=== PATIENT | female | born 1950 | race Caucasian/White ===

== ENCOUNTER → 2023-06-10 06:31 | Day surgery (SDC) | payer MEDICARE, OTHER, SELFPAY | LOC: GI 06:31 | PROVIDERS: ATTENDING PHYSICIAN Specialist | DX: K20.90 Esophagitis, unspecified without bleeding (principal); K22.2 Esophageal obstruction; R49.0 Dysphonia | CPT/HCPCS: 43239; 88305 ==

== ENCOUNTER → 2023-06-10 12:24 | Outpatient (REF) | payer MEDICARE, OTHER, SELFPAY ==
[2023-06-10 13:27] LABS: % Basophils 0.9 % (0-2); % Eosinophils 1.2 % (0-6); % Immature Granulocytes 0.5 % (0-0.5); % Lymphocytes 26.7 % (20.5-51.1); % Neutrophils 63.7 % (42.2-75.2); Absolute Basophils 0.1 10^3/uL (0-0.2); Absolute Eosinophils 0.1 10^3/uL (0-0.7); Absolute Lymphocytes 1.5 10^3/uL (1.2-3.4); Absolute Monocytes 0.4 10^3/uL (0.1-0.6); Absolute Neutrophils 3.6 10^3/uL (1.4-6.5); Hematocrit 37.9 % (37.0-47.0); Mean Corp Hgb Conc. 36.9 g/dL (33.0-37.0); Mean Corpuscular Volume 86.5 fL (81.0-99.0); Mean Platelet Volume 12.2 fL (7.4-10.4); Nucleated Red Blood Cells % 0 %; Platelet Count 146 10^3/uL (130-400); Red Blood Cell Count 4.38 10^6/uL (4.20-5.40); Red Cell Dist. Width 12.3 % (11.5-14.5); White Blood Cell Count 5.7 10^3/uL (4.8-10.8)
[2023-06-10 13:50] LABS: ALT (SGPT) 19 U/L (0-35); AST (SGOT) 28 U/L (14-36); Albumin 3.8 g/dl (3.5-5.0); Alkaline Phosphatase 67 U/L (38-126); Blood Urea Nitrogen 16 mg/dl (7-17); Calcium 8.7 mg/dl (8.4-10.2); Carbon Dioxide 28 mmol/L (22-30); Chloride 106 mmol/L (98-107); Glucose 89 mg/dl (70-99); Potassium 4.2 mmol/L (3.5-5.1); Sodium 137 mmol/L (135-145); Total Bilirubin 1.7 mg/dl (0.2-1.3); Total Protein 6.4 g/dl (6.3-8.2); eGFR > 60.00
== END ==
LOC: REG 12:24
PROVIDERS: ATTENDING PHYSICIAN Physician Assistant
DX: K43.9 Ventral hernia without obstruction or gangrene (principal); R10.9 Unspecified abdominal pain
CPT/HCPCS: 36415; 80053; 85025; 87086

== ENCOUNTER → 2023-06-11 13:40 | Outpatient (REF) | payer MEDICARE, OTHER, SELFPAY | LOC: HWRAD 13:40 | PROVIDERS: ATTENDING PHYSICIAN Physician Assistant; FAMILY PHYSICIAN Family Medicine | DX: K43.9 Ventral hernia without obstruction or gangrene (principal); R10.9 Unspecified abdominal pain | CPT/HCPCS: 74177; Q9967 ==

== ENCOUNTER 2023-10-19 14:53 | Outpatient (RCR) | payer MEDICARE, OTHER, SELFPAY | END 2023-10-19 23:59 | disposition home or self-care (01) | LOC: RPT 14:53 | PROVIDERS: ATTENDING PHYSICIAN Family Medicine | DX: M54.50 Low back pain, unspecified (principal); R19.8 Other specified symptoms and signs involving the digestive system and abdomen; K43.9 Ventral hernia without obstruction or gangrene; Z73.6 Limitation of activities due to disability | CPT/HCPCS: 97110; 97140; 97161; 97530 ==

== ENCOUNTER 2023-10-25 09:51 | Outpatient (RCR) | payer MEDICARE, OTHER, SELFPAY | END 2023-10-25 23:59 | disposition home or self-care (01) | LOC: RPT 09:51 | PROVIDERS: ATTENDING PHYSICIAN Family Medicine | DX: M54.50 Low back pain, unspecified (principal); R19.8 Other specified symptoms and signs involving the digestive system and abdomen; K43.9 Ventral hernia without obstruction or gangrene; Z73.6 Limitation of activities due to disability | CPT/HCPCS: 97110 ==

== ENCOUNTER 2023-10-31 19:02 | Emergency (ER) | payer MEDICARE, OTHER, SELFPAY ==
[2023-10-31 19:05] VITALS: BP 179/88
[2023-10-31] MEDS: NORCO 5/325 1 TABLET PO (20:26)
[2023-10-31 22:29] LABS: % Basophils 0.7 % (0-2); % Eosinophils 1.9 % (0-6); % Immature Granulocytes 0.5 % (0-0.5); % Lymphocytes 23.7 % (20.5-51.1); % Monocytes 10.6 % (1.7-9.3); % Neutrophils 62.6 % (42.2-75.2); Absolute Eosinophils 0.1 10^3/uL (0-0.7); Absolute Lymphocytes 1.4 10^3/uL (1.2-3.4); Absolute Monocytes 0.6 10^3/uL (0.1-0.6); Absolute Neutrophils 3.6 10^3/uL (1.4-6.5); Hematocrit 37.6 % (37.0-47.0); Hemoglobin 13.2 g/dL (12.0-16.0); Mean Corp Hgb Conc. 35.1 g/dL (33.0-37.0); Mean Corpuscular Hgb 31.3 pg (27.0-31.0); Mean Corpuscular Volume 89.1 fL (81.0-99.0); Nucleated Red Blood Cells % 0 %; Platelet Count 150 10^3/uL (130-400); Red Blood Cell Count 4.22 10^6/uL (4.20-5.40); Red Cell Dist. Width 12.4 % (11.5-14.5); White Blood Cell Count 5.7 10^3/uL (4.8-10.8)
[2023-10-31 22:40] LABS: ALT (SGPT) 22 U/L (0-35); AST (SGOT) 28 U/L (14-36); Albumin 3.9 g/dl (3.5-5.0); Alkaline Phosphatase 67 U/L (38-126); Blood Urea Nitrogen 35 mg/dl (7-17); Calcium 9.4 mg/dl (8.4-10.2); Carbon Dioxide 28 mmol/L (22-30); Chloride 105 mmol/L (98-107); Glucose 107 mg/dl (70-99); Potassium 4.4 mmol/L (3.5-5.1); Sodium 139 mmol/L (135-145); Total Bilirubin 1.1 mg/dl (0.2-1.3); Total Protein 6.2 g/dl (6.3-8.2); eGFR > 60.00
--- NOTE | 2023-10-31 23:07 | ED.MUSCINJ ---
HPI-Injury
General
Chief Complaint: Fall
Source: patient
Exam Limitations: none
Time Seen by Provider: 10/31/23 20:11
Nursing documentation reviewed up to this point in time: agreed with
History of Present Illness-Injury
Is this injury a work related problem?: No
Is pt an associate of [facility]/[place]?: No
Initial Injury comments:
Patient to ED after trip and fall. Fell walking up cement patio steps. Denies hitting her head. Complains of carver to left wrist and sternum. Abrasions noted bilateral knees. Injury occurred just PURCHASING SUPERVISOR
Past History
Past History
ED Past Medical History: Asthma and Other (diverticulitis)
ED Past Surgical History: Bowel resection
Social History
Tobacco: Non-smoker
Alcohol: None
Drug: None
Personal:
Living: with family
Review of Systems
Review of Systems
Allergies reviewed?: Yes
All Other Systems: ROS reviewed and negative except as documented in HPI and ROS
Constitutional: Reports no symptoms
EENT: Reports no symptoms
Respiratory: Reports no symptoms
Cardiac: Reports no symptoms
ABD/GI: Reports no symptoms
: Reports no symptoms
Musculoskeletal: Reports joint pain (pain to left wrist, sternum)
Skin: Reports other (Abrasions bilateral anterior knees)
Neurological: Reports no symptoms
Psychiatric: Reports no symptoms
Musculoskeletal Injury Exam
Musculoskeletal Injury Exam
Left Wrist:
Pain with Movement?: Moderate
Tender to palpation?: Moderate
Soft tissue swelling?: Mild
External deformity and angulation?: None
Joint effusion?: None
Contusion?: Moderate
Hematoma-local bleeding into tissue?: Mild
Strain- Sprain- Tear (Connective tissue injury)?: Moderate
Crepitus with movement?: No
Joint instability?: No
Malalignment/deformity?: No
Range of motion: Limited
Distal skin color and temperature: normal-warm & good color
Capillary Refill: normal
Normal distal neurovascular exam?: Yes
Peripheral Pulses: radial (left): 3+
Sternum:
Pain with Movement?: Moderate
Tender to palpation?: Moderate
Soft tissue swelling?: None
External deformity and angulation?: None
Joint effusion?: None
Contusion?: Moderate
Hematoma-local bleeding into tissue?: None
Strain- Sprain- Tear (Connective tissue injury)?: Moderate
Crepitus with movement?: No
Joint instability?: No
Malalignment/deformity?: No
Range of motion: Limited
Distal skin color and temperature: normal-warm & good color
Capillary Refill: normal
Normal distal neurovascular exam?: Yes
Skin Exam
Abrasion
Bilateral Anterior Knee:
Description of abrasion: superfical/clean
Phy Exam
General Physical Exam
General Presentation: well appearing and mild distress
General age: appears stated age
General Skin: warm and dry
General Mental: alert
Cardiovascular Exam
Cardiovascular Exam: regular rate/rhythm
Pulmonary Exam
Pulmonary Exam: no respiratory distress
Gastrointestinal Exam
Gastrointestinal Exam: non tender and soft
Musculoskeletal Exam
Musculoskeletal Exam: neuro vasc intact
Skin Exam
Skin Exam: normal color, warm/dry and no rash
Psychiatric Exam
Psychiatric Exam: normal mood/affect
Injury Course
Orders/Labs/Results
Orders:
Orders
10/31/23 19:08
Wrist, Left 3 Views CR [CR Wrist - Left Min 3 Views] Urgent
Comment:
Reason For Exam: fall;pain and swelling
10/31/23 20:22
Sling Left-Treatment ONCE
Volar Left-Treatment ONCE
Hydrocodone 5/APAP 325 [Blossom 5/325] 1 tablet PO NOW STA
Sternum 2 Views CR [CR Sternum Min 2 Views] Urgent
Comment:
Reason For Exam: pain, fall
10/31/23 21:[address] [CT Chest With Iv Contrast] Urgent
Comment:
Reason For Exam: fall, sternal fx
10/31/23 22:21
Complete Blood Count/With Diff Urgent
Comprehensive Metabolic Panel Urgent
10/31/23 23:49
Hydrocodone 5/APAP 325 [Blossom 5/325] 1 tablet PO NOW STA
Abnormal Lab Results
10/31/23
22:21
MCH 31.3 H pg
(27.0-31.0)
MPV 11.0 H fL
(7.4-10.4)
Monocytes % 10.6 H %
(1.7-9.3)
BUN 35 H mg/dl
(7-17)
Glucose 107 H mg/dl
(70-99)
Total Protein 6.2 L g/dl
(6.3-8.2)
10/31/23 22:21
10/31/23 22:21
*Radiology
Radiology exam reviewed: radiology read reviewed
*Pulse Oximetry
Patient hypoxic: no
*Critical Care Note
Total Time (30-74mins, 75-104mins- exclusive of procedures): Not Applicable
ED Attending Note
-
Portions of this chart may have been created with voice recognition software.� Occasional wrong word or��sound alike� substitutions may have occurred due to the inherent limitations of voice recognition software.
Discharge Plan
Departure
Patient Disposition: Home (Routine Discharge)
Date of Disposition: 10/31/23
Time of Disposition: 23:49
Patient with high blood pressure during this ER visit?: No
Condition: Good
Covid-19: Not Applicable
Discharge Problem:
Fracture of wrist, Fracture of sternum
Instructions: Sternal Fracture (DC), How to Use a Shoulder Sling ED, Splint Care ED, Wrist fracture
Prescriptions:
New
hydrocodone-acetaminophen 5-325 mg tablet
1 tab PO Q4H PRN (Reason: Pain) Qty: 14 0RF
No Action
taurine 500 MG capsule
500 mg PO DAILY
Centrum Silver 0.4 mg-300 mcg- 250 mcg Tablet
1 tab PO DAILY
magnesium gluconate 27 mg magnesium (500 mg) Tablet
54 mg PO DAILY
Spiriva Respimat 2.5 mcg/actuation Mist
2 puff inhalation R DAILY Qty: 4 0RF
levalbuterol tartrate [Xopenex HFA] 45 mcg/actuation HFA aerosol inhaler
2 inh inhalation Q6H PRN (Reason: shortness of breath or wheezing) Qty: 15 0RF
Referrals:
Elsy Ace MD [Family Provider] -
Suleiman Willett MD [Active] - Call in 1-3 days for appt
Interventions
Interventions:
*Risk Screen - Suicide Last Done: 10/31/23 19:05
*General Assessment Last Done: 10/31/23 19:05
*Neglect/Abuse Screening Last Done: 10/31/23 19:05
ED- Fall Risk Assessment Last Done: 10/31/23 19:54
*ED COVID-19 Vaccine History Last Done: 10/31/23 19:05
*Nursing Disposition Last Done: 11/01/23 00:18
ED-Musculoskeletal Assessment Last Done: 10/31/23 20:00
ED- Neurological Assessment Last Done: 10/31/23 19:59
ED-Skin Assessment Last Done: 10/31/23 20:00
Discharge Date and Time
Discharge Date/Time: 11/01/23 00:19
Print Language: KYRGYZ
[2023-10-31 23:12] VITALS: BP 155/72
[2023-10-31 23:13] VITALS: BMI 30.3
[2023-11-01] MEDS: NORCO 5/325 1 TABLET PO (00:07)
== END 2023-11-01 00:19 | disposition home or self-care (01) ==
LOC: EMR 19:02
PROVIDERS: Nurse Practitioner; EMERGENCY PHYSICIAN Emergency Medicine; FAMILY PHYSICIAN Family Medicine
DX: S52.325A Nondisplaced transverse fracture of shaft of left radius, initial encounter for closed fracture (principal); S22.20XA Unspecified fracture of sternum, initial encounter for closed fracture; S80.212A Abrasion, left knee, initial encounter; S80.211A Abrasion, right knee, initial encounter; W10.9XXA Fall (on) (from) unspecified stairs and steps, initial encounter
CPT/HCPCS: 99284; 29125; 71120; 71260; 73110; 80053; 85025; Q9967

== ENCOUNTER → 2023-11-16 10:27 | Outpatient (REF) | payer MEDICARE, OTHER, SELFPAY | LOC: RAD 10:27 | PROVIDERS: ATTENDING PHYSICIAN Family Medicine; FAMILY PHYSICIAN Family Medicine | DX: R09.1 Pleurisy (principal); S22.22XA Fracture of body of sternum, initial encounter for closed fracture | CPT/HCPCS: 73010 ==

== ENCOUNTER → 2024-02-18 13:16 | Outpatient (REF) | payer MEDICARE, OTHER, SELFPAY | LOC: HWRAD 13:16 | PROVIDERS: ATTENDING PHYSICIAN Student in an Organized Health Care Education/Training Program; FAMILY PHYSICIAN Family Medicine | DX: M25.50 Pain in unspecified joint (principal); M54.50 Low back pain, unspecified; R76.8 Other specified abnormal immunological findings in serum | CPT/HCPCS: 72114 ==

== ENCOUNTER → 2024-03-15 13:52 | Outpatient (REF) | payer MEDICARE, OTHER, SELFPAY | LOC: HWRAD 13:52 | PROVIDERS: ATTENDING PHYSICIAN Student in an Organized Health Care Education/Training Program; FAMILY PHYSICIAN Family Medicine | DX: M85.89 Other specified disorders of bone density and structure, multiple sites (principal); Z13.820 Encounter for screening for osteoporosis | CPT/HCPCS: 77080 ==

== ENCOUNTER → 2024-03-31 11:54 | Outpatient (REF) | payer MEDICARE, OTHER, SELFPAY ==
[2024-03-31 13:05] LABS: % Eosinophils 2.4 % (0-6); % Immature Granulocytes 0.2 % (0-0.5); % Lymphocytes 28.9 % (20.5-51.1); % Neutrophils 58.5 % (42.2-75.2); Absolute Basophils 0.1 10^3/uL (0-0.2); Absolute Eosinophils 0.1 10^3/uL (0-0.7); Absolute Lymphocytes 1.5 10^3/uL (1.2-3.4); Absolute Monocytes 0.5 10^3/uL (0.1-0.6); Absolute Neutrophils 2.9 10^3/uL (1.4-6.5); Hematocrit 42.8 % (37.0-47.0); Hemoglobin 14.2 g/dL (12.0-16.0); Mean Corp Hgb Conc. 33.2 g/dL (33.0-37.0); Mean Corpuscular Hgb 30.8 pg (27.0-31.0); Mean Corpuscular Volume 92.8 fL (81.0-99.0); Mean Platelet Volume 12.3 fL (7.4-10.4); Nucleated Red Blood Cells % 0 %; Platelet Count 164 10^3/uL (130-400); Red Blood Cell Count 4.61 10^6/uL (4.20-5.40); Red Cell Dist. Width 12.3 % (11.5-14.5)
== END ==
LOC: REG 11:54
PROVIDERS: ATTENDING PHYSICIAN Physician Assistant; FAMILY PHYSICIAN Family Medicine
DX: R19.5 Other fecal abnormalities (principal)
CPT/HCPCS: 36415; 85025

== ENCOUNTER 2024-05-08 08:14 | Inpatient (IN) | payer MEDICARE, OTHER, SELFPAY ==
[2024-05-06 09:59] VITALS: BP 168/94
--- NOTE | 2024-05-06 12:03 | ED.GENMED ---
History of Present Illness
General
Chief Complaint: Back Pain
Source: patient and spouse
Exam Limitations: none
Time Seen by Provider: 05/06/24 11:17
History of Present Illness
History of Present Illness:
Patient with lumbar injections done 2 days ago. This is for chronic back issues. However yesterday she developed fevers chills shaking chills. Increasing pain now more sciatica-like rating to the buttock and right leg. No other symptoms, denying
urinary symptoms abdominal pain respiratory symptoms sore throat etc. Pain is severe in nature. Positional in nature.
Past History
Past History
ED Past Medical History: Asthma, Other (diverticulitis) and Other (Chronic back pain)
ED Past Surgical History: Bowel resection
Social History
Tobacco: Non-smoker
Alcohol: None
Drug: None
Personal:
Living: with family
Review of Systems
Review of Systems
All Other Systems: Not applicable
Constitutional: Reports fever and chills
Respiratory: Reports no symptoms
Cardiac: Reports no symptoms
ABD/GI: Reports no symptoms
Phy Exam
Physical Exam
Physical Exam:
GENERAL: Alert and oriented in no apparent distress
EYE: Orbits normal.
CARDIAC: Regular rate and rhythm without any obvious murmurs.
LUNGS: Clear breath sounds,normal
ABDOMEN: Soft, without focal tenderness or distention
NEUROLOGICAL: Alert and oriented , grossly non-focal
SKIN: Warm and dry, no rash or lesion, no discoloration, skin intact.
MUSCULOSKELETAL: No edema,no deformity.Good color. No pain with hip rotation. No leg swelling. Good distal pulses and color. Good lower extremity strength. Plantar dorsiflexion intact. Some mild low back pain with right straight leg raising.
The spinal area appears normal. No erythema no drainage. No point tenderness. Location of pain is inferior and lateral to the lower lumbar spine.
PSYCH: Normal and appropriate interaction.
Course
Orders/Labs/Results
Orders:
Orders
05/06/24 11:21
IV Insert/Care/Rem.- Treatment PRN
05/06/24 11:34
Acetaminophen 1000MG/100Ml [Ofirmev] 1,000 mg in 100 ml IV ONCE
Acetaminophen IV Indication:: Targeted Temp Management
05/06/24 11:35
Ketorolac [Toradol] 15 mg IV NOW STA
05/06/24 11:38
MR Lumbar W/o & With Contrast Urgent
Reason For Exam: Fever/lumbar injection/pain
OK for patient to be off Cardiac Monitoring for MRI: Yes
Recent pill cam endoscopy?: No
05/06/24 12:41
Basic Metabolic Panel Urgent
COVID-19 Antigen Urgent
Source: Nasal Swab
CRP [C-Reactive Protein] Urgent
Complete Blood Count/With Diff Urgent
ESR [Erythrocyte Sed Rate] Urgent
Blood Culture Q30M
GISSEL Source: Blood/Venous
Specimen Description:
Influenza A+B Rapid Molecular Urgent
GISSEL Source: Nasal Swab
Specimen Description:
05/06/24 13:47
Urinalysis Reflex To Culture Urgent
Date Specimen was Collected: 05/06/24
Time Specimen was Collected: 11:34
Urine Microscopic Reflex Cult Urgent
Blood Culture Q30M
GISSEL Source: Blood/Venous
Specimen Description:
Urine Culture Urgent
GISSEL Source: U
Specimen Description:
Date Specimen was Collected: 05/06/24
Time Specimen was Collected: 11:34
05/06/24 Dinner
Regular
At Your Request: Full Participation
05/06/24 16:02
CefTRIAXone [Rocephin] 1,000 mg IV NOW STA
HYDROmorphone [Dilaudid] 0.25 mg IV NOW STA
05/06/24 16:12
Sterile Water [Sterile Water For Injection] 20 ml .ROUTE .STK-MED
05/06/24 17:04
Cyclobenzaprine HCl [Flexeril] 5 mg PO NOW STA
HYDROmorphone [Dilaudid] 1 mg IV Q4HPRN PRN
Ketorolac [Toradol] 15 mg IV Q6HPRN PRN
05/06/24 17:05
Admit/Transfer Patient As Directed
Co-Sign Provider:
Level of Care: Observation services
Assign to:: Medical/Surgical
Physician / Group: maurice askew
Diagnosis: acute R sided sciatica/w radiculopathy,sympt UTI
Reason for Hospitalization: acute R sided sciatica/w radiculopathy,sympt UTI
Expected length of stay greater than two midnights?: No
05/06/24 17:06
Code Status As Directed
Resuscitation Status: Full Code
05/06/24 17:09
PRN Pain Medication Management As Directed
May give lesser potent ordered pain med per pt: Yes
preference::
Protocol:: Medication orders for pain may be administered in a
manner that supports deferring to patient preference
when the pt is:
- Requesting an ordered lesser potent pain medication.
Least to most potent pain medications are defined
as: acetaminophen < NSAID < tramadol < opioids
(morphine, oxycodone, hydromorphone).
- Requesting a lesser dose of the same medication IF
ORDERED.
- Requesting a less intrusive route of administration
if both routes are prescribed by the provider (PO <
IV).
05/06/24 22:00
Cyclobenzaprine HCl [Flexeril] 5 mg PO TID
Abnormal Lab Results
05/06/24 05/06/24
12:41 13:47
RBC 4.13 L 10^6/uL
(4.20-5.40)
MCH 31.5 H pg
(27.0-31.0)
Plt Count 110 L 10^3/uL
(130-400)
MPV 11.4 H fL
(7.4-10.4)
Absolute Lymphs (auto) 0.4 L 10^3/uL
(1.2-3.4)
Neutrophils % 83.8 H %
(42.2-75.2)
Lymphocytes % 6.9 L %
(20.5-51.1)
ESR 26 H mm/hour
(0-20)
Sodium 134 L mmol/L
(135-145)
BUN 22 H mg/dl
(7-17)
Glucose 111 H mg/dl
(70-99)
C-Reactive Protein 71.90 H mg/L
(0.0-10.00)
Urine Ketones Trace A
(Negative)
Urine Nitrite (Reflex) Positive A
(Negative)
Leukocyte Esterase Rfl 1+ A
(Negative)
Urine WBC (Reflex) 30-40 A /HPF
(0-5)
Urine Bacteria (Reflex) Many A
(Negative)
05/06/24 12:41
05/06/24 12:41
Vital Signs
Initial and Last Documented VS:
Initial Vital Signs
Temp Pulse Resp BP Pulse Ox
100.1 F 81 16 168/94 98
05/06/24 09:59 05/06/24 09:59 05/06/24 09:59 05/06/24 09:59 05/06/24 09:59
Last Documented Vital Signs
Temp Pulse Resp BP Pulse Ox
98.9 F 70 16 130/60 97
05/06/24 16:49 05/06/24 16:49 05/06/24 09:59 05/06/24 16:49 05/06/24 16:49
MDM/Problems Addressed
Differential Diagnosis Includes:
With infectious symptoms, increasing pain and recent injection epidural abscess osteomyelitis or discitis have to be considered. MRI ordered. Other etiology of fever to be considered including urine or viral although unlikely. Workup in progress.
Pain management.
*Pulse Oximetry
Patient hypoxic: no
*Critical Care Note
Total Time (30-74mins, 75-104mins- exclusive of procedures): Not Applicable
Data Reviewed
Review of Other/Old Records Reveals: Labs, Records, Radiology Studies and Testing
Update Note
Update Note:
Stable MRI. No signs of osteomyelitis discitis or epidural collection. Urine positive. Possibly 2 independent issues causing her issues. Will be admitted for intractable back pain UTI with some systemic symptoms
ED Attending Note
-
Portions of this chart may have been created with voice recognition software.� Occasional wrong word or��sound alike� substitutions may have occurred due to the inherent limitations of voice recognition software.
Discharge Plan
Departure
Patient Disposition: Admit
Date of Disposition: 05/06/24
Time of Disposition: 16:03
Presentation/result/management discussed w/ accepting MD/DO: Hospitalist
Discharge Problem:
Intractable back pain/sciatica, Recent lumbar injections, Fever/UTI
Prescriptions:
No Action
taurine 500 MG capsule
500 mg PO DAILY
Centrum Silver 0.4 mg-300 mcg- 250 mcg Tablet
1 tab PO DAILY
magnesium gluconate 27 mg magnesium (500 mg) Tablet
54 mg PO DAILY
B12
1,000 mcg PO DAILY
cholecalciferol (vitamin D3) [Vitamin D3] 25 mcg (1,000 unit) Tablet
naproxen sodium [Aleve] 220 mg Capsule
220 mg PO PRN PRN (Reason: pain)
Referrals:
Elsy Ace MD [Family Provider] -
Interventions
Interventions:
*Risk Screen - Suicide Last Done: 05/06/24 09:59
*General Assessment Last Done: 05/06/24 11:10
*Neglect/Abuse Screening Last Done: 05/06/24 09:59
*ED COVID-19 Vaccine History Last Done: 05/06/24 11:10
ED-Musculoskeletal Assessment Last Done: 05/06/24 11:10
Discharge Date and Time
Print Language: AMERICAN
[2024-05-06] MEDS: OFIRMEV 100 IV (12:42)
[2024-05-06] MEDS: TORADOL 15 MG IV ×2 (12:43→21:13)
[2024-05-06 13:16] LABS: % Basophils 0.5 % (0-2); % Eosinophils 0.2 % (0-6); % Immature Granulocytes 0.2 % (0-0.5); % Lymphocytes 6.9 % (20.5-51.1); % Monocytes 8.4 % (1.7-9.3); % Neutrophils 83.8 % (42.2-75.2); Absolute Lymphocytes 0.4 10^3/uL (1.2-3.4); Absolute Monocytes 0.5 10^3/uL (0.1-0.6); Hematocrit 37.8 % (37.0-47.0); Mean Corp Hgb Conc. 34.4 g/dL (33.0-37.0); Mean Corpuscular Hgb 31.5 pg (27.0-31.0); Mean Corpuscular Volume 91.5 fL (81.0-99.0); Mean Platelet Volume 11.4 fL (7.4-10.4); Nucleated Red Blood Cells % 0 %; Platelet Count 110 10^3/uL (130-400); Red Blood Cell Count 4.13 10^6/uL (4.20-5.40); Red Cell Dist. Width 12.5 % (11.5-14.5); White Blood Cell Count 5.9 10^3/uL (4.8-10.8)
[2024-05-06 13:23] LABS: Blood Urea Nitrogen 22 mg/dl (7-17); Carbon Dioxide 25 mmol/L (22-30); Chloride 100 mmol/L (98-107); Glucose 111 mg/dl (70-99); Potassium 3.9 mmol/L (3.5-5.1); Sodium 134 mmol/L (135-145); eGFR > 60.00
[2024-05-06 13:36] LABS: COVID-19 Antigen Negative (Negative)
[2024-05-06 14:01] LABS: Urine Albumin Negative (Neg - Trace); Urine Bilirubin Negative (Negative); Urine Character Clear (Clear); Urine Color Yellow; Urine Glucose Negative (Negative); Urine Ketone Trace (Negative); Urine Leukocyte 1+ (Negative); Urine Nitrite Positive (Negative); Urine Occult Blood Negative (Negative); Urine Urobilinogen Negative (Neg - 1+)
[2024-05-06 14:10] LABS: Urine Bacteria Many (Negative); Urine Red Blood Cell 0-2 /HPF (0-2); Urine White Cell 30-40 /HPF (0-5)
[2024-05-06 14:23] LABS: Erythrocyte Sed Rate 26 mm/hour (0-20)
[2024-05-06] MEDS: DILAUDID 0.25 MG IV (16:18)
[2024-05-06] MEDS: ROCEPHIN 1000 MG IV (16:18)
--- NOTE | 2024-05-06 16:29 | HPS.HSE ---
Family Physician
-
Family Physician: Elsy Ace
Chief Complaint
-
Urgency, frequency, difficulty urinating, right leg pain, fever shaking chills and headache
History of Present Illness
24-year-old female complaining of right buttocks to right leg pain today positional in nature. She also developed a fever 100.1 F with shaking chills and headache. She is status post lumbar epidural 2 days ago. She reports if the epidural helps
with her pain she will then have a rhizotomy procedure. She also complains of difficulty urinating for the past month then urgency and frequency over the past few days
She had MRIs in the ER were negative for any abscess, osteomyelitis, discitis or epidural collection. She was noted to have UTI on urinalysis. She denies sore throat, chest pain, palpitations, cough, shortness of breath, abdominal pain, nausea,
vomiting, diarrhea, rash, sick contacts.
She has past medical history of anxiety emphysema using Spiriva and Xopenex to decrease her anxiety, chronic back pain DJD thoracic/lumbar history epidural injections, diverticulitis, bowel resection.
Medical History
Past Medical History
Past Medical History: Reports Other
Additional Past Medical History:
Anxiety
Emphysema using Spiriva and Xopenex to decrease her anxiety
chronic back pain DJD thoracic/lumbar history epidural injections
Diverticulitis-bowel resection
Vocal cord polyps
Past Surgical History: Reports Other
Additional Past Surgical History:
Vocal cord polyps removed
Bilateral hip replacement
bilateral knee replacement
Bilateral thumb reconstruction
Hernia surgery
Colon resection�diverticulitis
'Rotator cuff
Social History
Tobacco: Non-smoker
Alcohol: None
Drug: None
Personal:
Living: With Family
Family History
Family History: Not pertinent
Allergies / Home Medications
Allergies reflects when Allergies were last updated in [facility].
Home Medications with original date entered in [facility]
Allergy/Medication List:
Allergies
Allergy/AdvReac Type Severity Reaction Status Date / Time
No Known Allergies Allergy Verified 05/06/24 09:59
Home Medications
taurine 500 mg capsule 500 mg PO DAILY Supplement 01/12/16
magnesium gluconate 27 mg magnesium (500 mg) tablet 54 mg PO DAILY 01/08/23
mmlbylma-prh-zwwyj acid 0.4 mg-lycopene 300 mcg-lutein 250 mcg tablet (Centrum Silver) 1 tab PO DAILY 01/08/23
B12 1,000 mcg PO DAILY 05/06/24
cholecalciferol (vitamin D3) 25 mcg (1,000 unit) tablet (Vitamin D3) 05/06/24
naproxen sodium 220 mg capsule (Aleve) 220 mg PO PRN PRN pain 05/06/24
Review of Systems
-
History Source: Patient and Family ()
A 12 point ROS was completed and negative except as noted: Yes
Constitutional: Reports Fever; Denies Chills
EENT: Denies Sore Throat or Runny Nose
Respiratory: Denies Cough or Trouble Breathing
Cardiac: Denies Chest Pain, Diaphoresis, Palpitations or Syncope
Abdomen/GI: Denies Abdominal Pain, Nausea, Vomiting, Diarrhea, Constipated, Bloody Stools or Black Stools
: Reports Dysuria, Frequency, Difficulty Voiding and Urgency; Denies Flank Pain, Incontinence or Dark Urine
Musculoskeletal: Reports Other (Point tenderness right side over sciatic area with radiculopathy down right leg); Denies Joint Pain or Edema
Skin: Denies Itching or Rash
Neurological: Denies Dizzy, Headache or Weakness
Endocrine: Reports No Symptoms
Hematologic/Lymphatic: Reports No Symptoms
Psych: Reports Anxiety (Due to pain)
Physical Exam
Vital Signs
Vital Signs
Temp Pulse Resp BP Pulse Ox
100.1 F 81 16 168/94 98
05/06/24 09:59 05/06/24 09:59 05/06/24 09:59 05/06/24 09:59 05/06/24 09:59
Physical Exam
General: Conversant and Pain; No Fever
HEENT: NormoCephalic, Anicteric, Moist mucous membranes, PERRLA, [place] Conjunctivae and No Ptosis
Respiratory: Clear; No Wheezes, Rales or Rhonchi
Cardiac: S1/S2 and Regular Rhythm; No Murmur, Rub, Gallop or Peripheral Edema
Breast: Deferred by me
GI: Soft, Non Tender, Non Distended, Normal Bowel Sounds and No Hepatosplenomegaly
Rectal: Deferred by Provider
Genito-urinary: Deferred by me
Musculoskeletal: No Clubbing, No Cyanosis and No Edema
Skin: Warm and Dry; No Rash or Jaundice
Neuro: AO x 3, No Motor Deficits, Nonfocal/grossly intact, Cranial Nerves Intact, No Sensory Deficits and Other (Point tenderness right side over sciatic area with radiculopathy down right leg); No Slurred Speech, Facial Droop, Tremors or Sedated
Psych: Anxious
Laboratory Results
-
05/06/24 12:41
05/06/24 12:41
Data Reviewed
-
Lab Data: Labs Reviewed by me
Impression/Plan
-
Impression/plan:
Admit to MedSurg
#Intractable back pain secondary to symptomatic UTI
Urgency, frequency, difficulty urinating
-Follow urine culture, blood cultures x 2 sent in ER
-100.1 F temp
-IV NSS 100 cc/h
-Tylenol as needed
-Follow CBC, CMP
#Acute right sided sciatica with radiculopathy exacerbated by recent epidural injection
#Chronic back pain due to DJD thoracic lumbar
-Patient's status post epidural injection 05/04/2024
-MRI of back today no abscess, osteomyelitis, discitis or epidural collection
-Flexeril 3 times daily, IV Toradol
#Chronic COPD�no acute exacerbation
-Continue Xopenex and Spiriva
Patient cannot tolerate albuterol nebs due to anxiety
#Anxiety Hx
#Diverticulitis hx
#Bowel resection hx
DVT prophylaxis
SCDs
Full code
[2024-05-06 16:49] VITALS: BP 130/60
--- NOTE | 2024-05-06 16:58 | W.PN.UPDATE ---
Update Note
Progress Note Update
This is an addendum to the H&P written by Lurdes Steiner on 05/06/2024. Patient seen and examined independently with [employer]ILY [employer].
74-year-old female past medical history of chronic back pain, asthma, presenting with fevers and chills starting yesterday. She had lumbar injections 2 days ago. She is having sciatica like pain radiating down the butt and down the right leg.
Patient with an pressure of 100.1. Labs show elevated CRP.
MRI lumbar spine shows multilevel degenerative changes of the lumbar spine without evidence of discitis/osteomyelitis or epidural collection. Urinalysis shows clear urine, 30-40 WBC, positive nitrates, +1 leukocyte esterase. COVID and influenza
are negative.
Presentation was initially concerning for discitis/osteomyelitis or epidural collection which is ruled out on MRI. Patient likely has lumbar radiculopathy exacerbated by steroid injection. Patient also with UTI. Check urine culture, blood
cultures. Ceftriaxone.
[2024-05-06] MEDS: FLEXERIL 5 MG PO ×2 (17:53→21:12)
[2024-05-06 19:25] VITALS: BP 139/72; BMI 29.5
--- NOTE | 2024-05-06 19:25 | PTCARENOTE ---
Pt arrived to at 1925 via wheelchair. Pt was assit x2 to bed. VSS and AAOX3. oriented to room and call bragg. bed in lowest position and locked. assessment ongoing.
[2024-05-06 23:27] VITALS: BP 135/58
[2024-05-07] MEDS: DILAUDID 1 MG IV (00:12)
[2024-05-07] MEDS: TYLENOL 650 MG PO ×3 (01:19→21:07)
[2024-05-07 06:07] LABS: % Basophils 0.4 % (0-2); % Eosinophils 0.2 % (0-6); % Immature Granulocytes 0.2 % (0-0.5); % Lymphocytes 10.5 % (20.5-51.1); % Monocytes 10.5 % (1.7-9.3); % Neutrophils 78.2 % (42.2-75.2); Absolute Lymphocytes 0.5 10^3/uL (1.2-3.4); Absolute Monocytes 0.5 10^3/uL (0.1-0.6); Absolute Neutrophils 3.5 10^3/uL (1.4-6.5); Hematocrit 35.7 % (37.0-47.0); Hemoglobin 12.1 g/dL (12.0-16.0); Mean Corp Hgb Conc. 33.9 g/dL (33.0-37.0); Mean Corpuscular Hgb 31.3 pg (27.0-31.0); Mean Corpuscular Volume 92.2 fL (81.0-99.0); Mean Platelet Volume 11.8 fL (7.4-10.4); Nucleated Red Blood Cells % 0 %; Platelet Count 101 10^3/uL (130-400); Red Blood Cell Count 3.87 10^6/uL (4.20-5.40); Red Cell Dist. Width 12.6 % (11.5-14.5); White Blood Cell Count 4.5 10^3/uL (4.8-10.8)
[2024-05-07 06:22] LABS: ALT (SGPT) 29 U/L (0-35); AST (SGOT) 41 U/L (14-36); Albumin 3.2 g/dl (3.5-5.0); Alkaline Phosphatase 66 U/L (38-126); Blood Urea Nitrogen 21 mg/dl (7-17); Calcium 8.3 mg/dl (8.4-10.2); Carbon Dioxide 26 mmol/L (22-30); Chloride 102 mmol/L (98-107); Estimated Creatinine Clearance 86 ml/min; Glucose 111 mg/dl (70-99); Potassium 3.8 mmol/L (3.5-5.1); Sodium 135 mmol/L (135-145); Total Bilirubin 1.5 mg/dl (0.2-1.3); Total Protein 5.6 g/dl (6.3-8.2); eGFR > 60.00
[2024-05-07 07:05] VITALS: BP 119/62
[2024-05-07 07:05] LABS: Hepatitis C Antibody Negative (Negative)
[2024-05-07] MEDS: VITAMIN B-12 1000 MCG PO (09:10)
[2024-05-07] MEDS: FLEXERIL 5 MG PO ×3 (09:10→21:03)
[2024-05-07] MEDS: THERAGRAN 1 TABLET PO (09:10)
--- NOTE | 2024-05-07 10:11 | PTCARENOTE ---
Patient feels much better with minimal amount of pain in lower back extending to right hip. Patient's gown and bed linens were wet with sweat. Patient states, 'My fever broke last night and I woke up soaked.' Patient OOb to BR with assist, some
weakness in RLE noted. Patient tolerated regular diet and is now sitting in chair. Spouse at bedside.
[2024-05-07 11:39] VITALS: BP 145/65; PULSE 105; O2SAT 99
[2024-05-07 11:40] VITALS: BP 145/65; PULSE 61
--- NOTE | 2024-05-07 13:53 | W.PN.HOSP.TC ---
Today's Communication/Plan
-
Continue with IV ceftriaxone
Follow cultures
Continue analgesia
PT/OT
Start Lovenox for DVT prophylaxis
Assessment / Plan
Assessment / Plan
#Sepsis secondary to symptomatic UTI
-Presented with urinary frequency/weak stream, fever; urine culture positive for E. coli
-No history of MDRO, was started on IV ceftriaxone after cultures taken
-Has remained hemodynamically stable without vasopressor requirement
-Blood cultures were also taken in the ED prior to antibiotics
-Viral testing was all negative; fever this morning of 101.1 �F
-Will continue with IV ceftriaxone empirically, follow CBC and temperature curve
-Continue to follow urine and blood cultures for sensitivities
-Narrow antibiotics accordingly
#Intractable back pain
#Lumbosacral radiculitis
#Right sided sciatica
-Chronic issue with acute on chronic worsening, s/p recent FABIOLA
-MRI here without signs of abscess, osteodiscitis, other infectious findings
-Pain improved on muscle relaxer and opiate analgesia
-Currently with likely systemic infection, will defer against steroid
-Continue with Flexeril and IV Toradol/IV Dilaudid
-PT/OT, encourage OOB as tolerated
-Start DVT prophylaxis with Lovenox, high risk with back injury
#Thrombocytopenia
#Leukopenia
-Suspect both processes reactive to UTI with possible bacteremia
-Platelet trend fairly stable, 110�101 on subsequent lab draws
-Continue to monitor CBC, monitor for bleeding
#COPD
-History of emphysema predominant COPD
-Home medications do not include any inhalers
-Does not require any baseline oxygen
-No signs of exacerbation
#DJD of thoracolumbar spine
#H/O recurrent diverticulitis s/p bowel resection
DVT prophylaxis: Start Lovenox
Diet: Regular
CODE STATUS: Full code
Anticipated Discharge: 24 - 48 hours
Subjective/Interval History
-
Date of Service: May 07, 2024
Seen and examined at the bedside. No acute events reported overnight. AFVSS this morning but did have fever overnight
States that she was alternating between chills and sweating overnight.
Denies any new complaints today. Back pain improved but still present, worse with movement
Objective Data
-
Labs:
Laboratory Results
05/07/24
04:17
WBC 4.5 L
Hgb 12.1
Hct 35.7 L
Plt Count 101 L
Sodium 135
Potassium 3.8
Chloride 102
Carbon Dioxide 26
BUN 21 H
Creatinine 0.7
Glucose 111 H
Calcium 8.3 L
Total Bilirubin 1.5 H
AST 41 H
ALT 29
Alkaline Phosphatase 66
Vital Signs:
Vital Signs
Temp Pulse Resp BP Pulse Ox
98.4 F 61 16 119/62 93
05/07/24 07:05 05/07/24 07:05 05/07/24 07:05 05/07/24 07:05 05/07/24 07:05
I&O
05/06/24 05/07/24 05/08/24
06:59 06:59 06:59
Intake Total 960 / 960
Balance 960 / 960
Review of Systems
-
History Source: Patient
All other systems: Reviewed and negative
Physical Exam
-
General: Well Developed, Well Nourished, No Apparent Distress and Other (Toxic appearance)
HEENT: Normocephalic, Atraumatic and Moist Mucous Membranes
Respiratory: Clear to Auscultation and Non Labored Respirations
Cardiac: Regular Rhythm and S1/S2; Negative Murmur, Rub or Gallop
GI: Soft, Nontender, Nondistended and Normal Bowel Sounds
Musculoskeletal: No Clubbing, No Cyanosis and No Edema
Skin: Warm and Dry; Negative Rash
Neuro: AO x 3 and Other (Limited by sciatic pain, no obvious FND but likely some RLE weakness)
Psych: Calm
Data Reviewed
-
Labs: Labs Reviewed by me and Discussed with Patient
[2024-05-07] MEDS: TORADOL 15 MG IV (14:02)
[2024-05-07 15:00] VITALS: BP 128/60
[2024-05-07] MEDS: LOVENOX 40 MG SC (17:16)
[2024-05-07] MEDS: ROCEPHIN 1000 MG IV (17:17)
[2024-05-07] MEDS: STERILE WATER FOR INJECTION 10 ML IV (17:18)
[2024-05-07] MEDS: SENOKOT-S 1 TABLET PO (17:54)
[2024-05-07] MEDS: MIRALAX 17 GRAMS PO (17:54)
--- NOTE | 2024-05-07 17:58 | PTCARENOTE ---
Patient c/o constipation. Miralax and Senokot given.
[2024-05-07 23:05] VITALS: BP 134/67
[2024-05-08 07:11] VITALS: BP 148/70
[2024-05-08] MEDS: FLEXERIL 5 MG PO ×2 (08:52→16:29)
[2024-05-08] MEDS: VITAMIN B-12 1000 MCG PO (08:52)
[2024-05-08] MEDS: THERAGRAN 1 TABLET PO (08:52)
[2024-05-08] MEDS: TORADOL 15 MG IV (08:59)
[2024-05-08] MEDS: SENOKOT-S 1 TABLET PO (08:59)
[2024-05-08 09:59] LABS: Hematocrit 37.2 % (37.0-47.0); Hemoglobin 12.4 g/dL (12.0-16.0); Mean Corp Hgb Conc. 33.7 g/dL (33.0-37.0); Mean Corpuscular Hgb 31.2 pg (27.0-31.0); Mean Corpuscular Volume 92.7 fL (81.0-99.0); Mean Platelet Volume 11.8 fL (7.4-10.4); Platelet Count 103 10^3/uL (130-400); Red Blood Cell Count 3.97 10^6/uL (4.20-5.40); Red Cell Dist. Width 12.5 % (11.5-14.5); White Blood Cell Count 3.9 10^3/uL (4.8-10.8)
[2024-05-08 10:25] LABS: ALT (SGPT) 56 U/L (0-35); AST (SGOT) 60 U/L (14-36); Albumin 3.2 g/dl (3.5-5.0); Alkaline Phosphatase 100 U/L (38-126); Blood Urea Nitrogen 17 mg/dl (7-17); Calcium 8.4 mg/dl (8.4-10.2); Carbon Dioxide 31 mmol/L (22-30); Chloride 103 mmol/L (98-107); Estimated Creatinine Clearance 86 ml/min; Glucose 94 mg/dl (70-99); Potassium 4.1 mmol/L (3.5-5.1); Sodium 140 mmol/L (135-145); Total Bilirubin 1.3 mg/dl (0.2-1.3); Total Protein 5.7 g/dl (6.3-8.2); eGFR > 60.00
--- NOTE | 2024-05-08 10:50 | CM ---
Met with pt at bedside
Pt reports she lives with her in a multi-story home; 1 step to enter, 20 steps to 2nd fl - has 1/2 bath on FF
Independent with ADL's, activities, drives
DME - none
SNF/HH - no past hx
Has ride at discharge
PCP - Elsy Ace
Pharm - [facility]
PT - recs HH. Discussed with pt - unsure at this time - reports feels better at this time - will f/u prior to discharge
Plan - home no needs vs w/VN
[2024-05-08] MEDS: LIDOCAINE 4% PATCH 1 PATCH TOPICAL (11:02)
--- NOTE | 2024-05-08 12:21 | W.PN.HOSP.TC ---
Today's Communication/Plan
-
USS
Assessment / Plan
Assessment / Plan
74-year-old female with back pain. Also had a headache and chills. She had epidural 2 days MANAGER OF CONSTRUCTION. She was supposed to get a rhizotomy procedure if the epidural helped.
MRI of the lumbar spine without and with contrast-mild multilevel degenerative changes of the lumbar spine no evidence of discitis or osteomyelitis or epidural collection.
On examination awake alert
Cardiovascular system S1-S2 appreciated
Chest clear to auscultation
Patient was able to stand up for me to examine she pointed to right gluteal area a point specific tenderness indicating sciatica
No sensory or motor deficits noted on exam
# Intractable back pain
Recent epidural injection
MRI of the lumbar spine without and with contrast-no discitis or osteomyelitis
Lumbosacral radiculitis and right-sided sciatica-is the reason for pain
Acute on chronic pain
Continue pain management with muscle relaxants and analgesics
Her pain has improved a lot
PT OT
# E. coli UTI-sensitivities pending-continue ceftriaxone
# Slightly elevated LFTs-possible viral infection. Given fever check USS.
# Bicytopenia-thrombocytopenia and leukopenia-likely secondary to viral infection
# COPD/emphysema-stable
# DJD of thoracolumbar spine
# Diverticulosis-history of diverticulitis with bowel resection in the past
# DVT prophylaxis-Lovenox
# Full code
Patient does not want to follow-up with [facility] as did not get a call back from the physician even though she called more than once. She is known to [facility] from all her previous joint surgeries therefore I recommended that she
call them if she does not want to follow-up with [facility].
Discussed with nursing
She is Hoping to go home.
Anticipated Discharge: Today
Subjective/Interval History
-
Date of Service: May 08, 2024
Objective Data
-
Labs:
Laboratory Results
05/08/24
09:16
WBC 3.9 L
Hgb 12.4
Hct 37.2
Plt Count 103 L
Sodium 140
Potassium 4.1
Chloride 103
Carbon Dioxide 31 H
BUN 17
Creatinine 0.7
Glucose 94
Calcium 8.4
Total Bilirubin 1.3
AST 60 H
ALT 56 H
Alkaline Phosphatase 100
Vital Signs:
Vital Signs
Temp Pulse Resp BP Pulse Ox
97.6 F 56 16 148/70 95
05/08/24 07:11 05/08/24 07:11 05/08/24 07:11 05/08/24 07:11 05/08/24 08:00
I&O
05/07/24 05/08/24 05/09/24
06:59 06:59 06:59
Intake Total 960 / 960 1560 / 1560
Balance 960 / 960 1560 / 1560
[2024-05-08 15:11] VITALS: BP 164/82
--- NOTE | 2024-05-08 16:20 | W.DS.TRANS ---
DC Summary - Brand Strategy Manager
-
Discharge Instructions:
Discharge Diagnosis/Procedures Back pain
E. coli UTI
Viral infection
Slightly elevated LFTs
Mild thrombocytopenia and leukopenia
COPD/emphysema
Diverticulosis
Diet As tolerated
Activity As tolerated,No strenuous activity
Driving Restrictions as long as pain is not bothering
Instructions:
Stand-Alone Forms:
Changes to Home Medications: Yes
Discharge Medications:
DC Medications w/original date entered in [employer]
magnesium gluconate 27 mg magnesium (500 mg) tablet 54 mg PO DAILY Supplement 01/08/23
pgtpafdw-fch-ikhcw acid 0.4 mg-lycopene 300 mcg-lutein 250 mcg tablet (Centrum Silver) 1 tab PO DAILY Supplement 01/08/23
B12 1,000 mcg PO DAILY Supplement 05/06/24
cholecalciferol (vitamin D3) 25 mcg (1,000 unit) tablet (Vitamin D3) Supplement 05/06/24
naproxen sodium 220 mg capsule (Aleve) 220 mg PO PRN PRN pain 05/06/24
acetaminophen 500 mg tablet (Tylenol Extra Strength) 1,000 mg (2 x 500 mg) PO Q8HPRN PRN mild pain #60 tabs 05/08/24
cefuroxime axetil 500 mg tablet 500 mg PO BID Urinary issue #10 tabs 05/08/24
cyclobenzaprine 10 mg tablet 5 mg (1/2 x 10 mg) PO TID PRN muscle spasm #30 tabs 05/08/24
lidocaine 4 % topical patch 1 patch topical DAILY Pain #0 ea 05/08/24
polyethylene glycol 3350 17 gram oral powder packet 17 g PO DAILYPRN PRN constipation #0 ea 05/08/24
Home Medication Changes
new
acetaminophen 500 mg tablet (Tylenol Extra Strength) 1,000 mg (2 x 500 mg) PO Q8HPRN PRN mild pain #60 tabs 05/08/24
cefuroxime axetil 500 mg tablet 500 mg PO BID Urinary issue #10 tabs 05/08/24
cyclobenzaprine 10 mg tablet 5 mg (1/2 x 10 mg) PO TID PRN muscle spasm #30 tabs 05/08/24
lidocaine 4 % topical patch 1 patch topical DAILY Pain #0 ea 05/08/24
polyethylene glycol 3350 17 gram oral powder packet 17 g PO DAILYPRN PRN constipation #0 ea 05/08/24
Pending Results: No
[2024-05-08] MEDS: ROCEPHIN 1000 MG IV (16:29)
--- NOTE | 2024-05-08 16:29 | W.DS.TRANS ---
Addendum entered and electronically signed by Eloise Benson MD 05/08/24 16:43:
Dictation- [id number]
Original Note:
DC Summary - Mitten Stitcher
-
Discharge Instructions:
Discharge Diagnosis/Procedures Back pain
E. coli UTI
Viral infection
Slightly elevated LFTs
Mild thrombocytopenia and leukopenia
COPD/emphysema
Diverticulosis
Diet As tolerated
Activity As tolerated,No strenuous activity
Driving Restrictions as long as pain is not bothering
Blood Work CBC, CMP 1 week
Instructions:
Stand-Alone Forms:
Changes to Home Medications: Yes
Discharge Medications:
DC Medications w/original date entered in [facility]
magnesium gluconate 27 mg magnesium (500 mg) tablet 54 mg PO DAILY Supplement 01/08/23
xkmnzgxc-qgf-nckvd acid 0.4 mg-lycopene 300 mcg-lutein 250 mcg tablet (Centrum Silver) 1 tab PO DAILY Supplement 01/08/23
B12 1,000 mcg PO DAILY Supplement 05/06/24
cholecalciferol (vitamin D3) 25 mcg (1,000 unit) tablet (Vitamin D3) Supplement 05/06/24
naproxen sodium 220 mg capsule (Aleve) 220 mg PO PRN PRN pain 05/06/24
acetaminophen 500 mg tablet (Tylenol Extra Strength) 1,000 mg (2 x 500 mg) PO Q8HPRN PRN mild pain #60 tabs 05/08/24
cefuroxime axetil 500 mg tablet 500 mg PO BID Urinary issue #10 tabs 05/08/24
cyclobenzaprine 10 mg tablet 5 mg (1/2 x 10 mg) PO TID PRN muscle spasm #30 tabs 05/08/24
lidocaine 4 % topical patch 1 patch topical DAILY Pain #0 ea 05/08/24
polyethylene glycol 3350 17 gram oral powder packet 17 g PO DAILYPRN PRN constipation #0 ea 05/08/24
Home Medication Changes
new
acetaminophen 500 mg tablet (Tylenol Extra Strength) 1,000 mg (2 x 500 mg) PO Q8HPRN PRN mild pain #60 tabs 05/08/24
cefuroxime axetil 500 mg tablet 500 mg PO BID Urinary issue #10 tabs 05/08/24
cyclobenzaprine 10 mg tablet 5 mg (1/2 x 10 mg) PO TID PRN muscle spasm #30 tabs 05/08/24
lidocaine 4 % topical patch 1 patch topical DAILY Pain #0 ea 05/08/24
polyethylene glycol 3350 17 gram oral powder packet 17 g PO DAILYPRN PRN constipation #0 ea 05/08/24
Pending Results: No
[2024-05-08] MEDS: STERILE WATER FOR INJECTION 10 ML IV (16:30)
--- NOTE | 2024-05-09 10:12 | W.PN.UPDATE ---
Update Note
Progress Note Update
Reviewed pending labs from yesterday. CRP noted. Called the patient to see how she is doing. Patient stated that she is able to walk which she was not able to walk before she came into the hospital, her pain is better than how she was but not
completely gone away. She compares it as a bad toothache which is there all the time. She does not have any fevers.
Advised her to keep a log of temperature to see if she has any fevers, then to come back or call PCP
She will make an appointment with PCP
I called Dr. Ace and filled her in about the hospital stay and my phone call
Dr. Ace will kindly see her sometime this week.
If she has any more symptoms to consider CT scan of the abdomen and pelvis.
== END 2024-05-08 17:45 | disposition home or self-care (01) | DRG 690 ==
LOC: 2 SOUTH 08:14
PROVIDERS: Clinical Nurse Specialist Family Health; ADMITTING PHYSICIAN Hospitalist; ATTENDING PHYSICIAN Hospitalist; EMERGENCY PHYSICIAN Emergency Medicine; FAMILY PHYSICIAN Family Medicine
DX: N39.0 Urinary tract infection, site not specified (principal); G89.29 Other chronic pain; J44.89 Other specified chronic obstructive pulmonary disease; F41.9 Anxiety disorder, unspecified; J43.9 Emphysema, unspecified; M47.25 Other spondylosis with radiculopathy, thoracolumbar region; M54.31 Sciatica, right side; D69.6 Thrombocytopenia, unspecified; D72.819 Decreased white blood cell count, unspecified; B96.20 Unspecified Escherichia coli [E. coli] as the cause of diseases classified elsewhere; B34.9 Viral infection, unspecified; J38.1 Polyp of vocal cord and larynx; Z96.643 Presence of artificial hip joint, bilateral; Z96.653 Presence of artificial knee joint, bilateral; Z87.19 Personal history of other diseases of the digestive system; Z90.49 Acquired absence of other specified parts of digestive tract; Z11.52 Encounter for screening for COVID-19
CPT/HCPCS: 72158; 76700; 80048; 80053; 81003; 81015; 85025; 85027; 85652; 86140; 86803; 87040; 87071; 87086; 87186; 87502; 87811; 96374; 96375; 97162; 97166; 99284; A9575

== ENCOUNTER 2024-06-01 06:15 | Day surgery (SDC) | payer MEDICARE, OTHER, SELFPAY | END 2024-06-01 10:48 | disposition home or self-care (01) | LOC: GI 06:15 | PROVIDERS: ATTENDING PHYSICIAN Specialist | DX: K92.1 Melena (principal); K22.2 Esophageal obstruction; K44.9 Diaphragmatic hernia without obstruction or gangrene; K31.819 Angiodysplasia of stomach and duodenum without bleeding | CPT/HCPCS: 43255 ==

== ENCOUNTER → 2024-10-16 13:14 | Outpatient (REF) | payer MEDICARE, OTHER, SELFPAY | LOC: HWWDC 13:14 | PROVIDERS: ATTENDING PHYSICIAN Family Medicine | DX: Z12.31 Encounter for screening mammogram for malignant neoplasm of breast (principal) | CPT/HCPCS: 77063; 77067 ==

== ENCOUNTER 2024-12-16 13:01 | Emergency (ER) | payer MEDICARE, OTHER, SELFPAY ==
[2024-12-16] VITALS (7 sets, daily range): BP systolic 115–137; BP diastolic 60–80; BMI 30.1
[2024-12-16 13:40] LABS: Hematocrit 40.5 % (37.0-47.0); Hemoglobin 14.2 g/dL (12.0-16.0); Mean Corp Hgb Conc. 35.1 g/dL (33.0-37.0); Mean Corpuscular Volume 90.0 fL (81.0-99.0); Nucleated Red Blood Cells % 0 %; Platelet Count 119 10^3/uL (130-400); Red Cell Dist. Width 12.9 % (11.5-14.5)
[2024-12-16 13:55] LABS: Urine Character Slightly Cloudy (Clear)
[2024-12-16 14:03] LABS: ALT (SGPT) 37 U/L (0-35); AST (SGOT) 45 U/L (14-36); Albumin 4.3 g/dl (3.5-5.0); Alkaline Phosphatase 63 U/L (38-126); Blood Urea Nitrogen 21 mg/dl (7-17); Calcium 9.1 mg/dl (8.4-10.2); Carbon Dioxide 23 mmol/L (22-30); Chloride 102 mmol/L (98-107); Glucose 127 mg/dl (70-99); Potassium 4.3 mmol/L (3.5-5.1); Sodium 133 mmol/L (135-145); Total Protein 6.8 g/dl (6.3-8.2); eGFR > 60.00
[2024-12-16 14:09] LABS: Urine Red Blood Cell 0-2 /HPF (0-2)
--- NOTE | 2024-12-16 16:29 | ED.GENMED ---
History of Present Illness
General
Chief Complaint: Urinary Symptoms
Source: patient and spouse
Exam Limitations: none
Time Seen by Provider: 12/16/24 16:05
Nursing documentation reviewed up to this point in time: agreed with
History of Present Illness
History of Present Illness:
74 yo female w h/o UTI w sepsis, HLD, colon resection for diverticulitis, hernia repair, takes no medication, presents with fever, nausea, and abdominal pressure. Symptoms began 2 days ago with a sensation of chills and subsequently feeling very
hot. She took Tylenol at approximately 8 PM and Ibuprofen at 1 AM. Fever max 102 this a.m. that led to mild delirium. 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 The patient reports feeling nauseous and having a pressure sensation in the abdomen.
The patient also described urinary symptoms noting frequent attempts to urinate last night without much output and had difficulty urinating despite a sensation of bladder fullness.
Past History
Past History
ED Past Medical History: Asthma, Hypercholesterolemia, Other (diverticulitis) and Other (Chronic back pain)
ED Past Surgical History: Bowel resection, Orthopedic and Other (Hernia repair with mesh over 10 years ago)
Social History
Tobacco: Non-smoker
Alcohol: None
Drug: None
Personal:
Living: with family
Employment: Not employed
Review of Systems
Review of Systems
Allergies reviewed?: Yes
All Other Systems: ROS reviewed and negative except as documented in HPI and ROS
Constitutional: Reports fever and chills
EENT: Denies sore throat
Respiratory: Denies cough or trouble breathing
Cardiac: Denies chest pain
ABD/GI: Reports abdominal pain and nausea; Denies vomiting, diarrhea, constipated, bloody stools or black stools
: Reports frequency, difficulty voiding and urgency
Musculoskeletal: Reports no symptoms
Skin: Reports no symptoms
Neurological: Reports no symptoms
Phy Exam
Physical Exam
Physical Exam:
GENERAL: No acute distress. A&Ox3.
CONSTITUTIONAL: Afebrile.
EYES: clear, conjunctivae normal
ENMT: moist mucus membranes, Pharynx nl
RESPIRATORY: Regular respirations, nonlabored, lungs clear.
CARDIOVASCULAR: Regular rate and rhythm, no murmurs, no rubs.
GI: Soft, nondistended, generally tender, no guarding, normal BS
MUSCULOSKELETAL: Moves with ease. Well perfused.
SKIN: Warm, dry, pink
PSYCH: Normal mood and affect. Well kept, interactive and appropriate
NEUROLOGIC: Awake, alert and oriented. No focal neurological deficits
Course
Orders/Labs/Results
Orders:
Orders
12/16/24 13:24
Complete Blood Count/With Diff Urgent
Comprehensive Metabolic Panel Urgent
Lactic Acid Urgent
Monotest Urgent
Comment: ADD ON
Urinalysis Reflex To Culture Urgent
Date Specimen was Collected: 12/16/24
Time Specimen was Collected: 13:07
Urine Microscopic Reflex Cult Urgent
Blood Culture Urgent
GISSEL Source: Blood/Venous
Specimen Description:
Date Specimen was Collected: 12/16/24
Time Specimen was Collected: 13:07
Blood Parasites Urgent
GISSEL Source: Blood/Venous
Specimen Description:
Urine Culture Urgent
GISSEL Source: U
Specimen Description:
Date Specimen was Collected: 12/16/24
Time Specimen was Collected: 13:07
12/16/24 16:30
0.9% Sodium Chloride 1000 ml [Nss] 1,000 ml IV BOLUS
12/16/24 16:37
CT Abd/Pel (IV only)-DH only Urgent
Comment:
Reason For Exam: Generalized abdominal pain, fever
12/16/24 16:40
Blood Culture Urgent
GISSEL Source: Blood/Venous
Specimen Description:
12/16/24 17:14
CR Chest - 2 Views Urgent
Comment:
Reason For Exam: hypoxia, fever
12/16/24 17:28
COVID-19 Antigen Urgent
Source: Nasal Swab
Influenza A+B Rapid Molecular Urgent
GISSEL Source: Nasal Swab
Specimen Description:
12/16/24 18:38
Acetaminophen [Tylenol] 1,000 mg .ROUTE .STK-MED ONE
12/16/24 18:39
Acetaminophen [Tylenol] 1,000 mg PO NOW STA
12/16/24 20:24
Add On- LAB Urgent
Tests Added?: monotest
12/16/24 20:42
Ehrlichia/Anaplasma by PCR [S] Urgent
Lyme Progressive Urgent
Abnormal Lab Results
12/16/24
13:24
MCH 31.6 H pg
(27.0-31.0)
Plt Count 119 L 10^3/uL
(130-400)
MPV 10.8 H fL
(7.4-10.4)
Absolute Lymphs (auto) 0.6 L 10^3/uL
(1.2-3.4)
Neutrophils % 86.4 H %
(42.2-75.2)
Lymphocytes % 8.0 L %
(20.5-51.1)
Sodium 133 L mmol/L
(135-145)
BUN 21 H mg/dl
(7-17)
Glucose 127 H mg/dl
(70-99)
Total Bilirubin 1.9 H mg/dl
(0.2-1.3)
AST 45 H U/L
(14-36)
ALT 37 H U/L
(0-35)
Ur Occult Blood Reflex 1+ A
(Negative)
Leukocyte Esterase Rfl 1+ A
(Negative)
Urine Bacteria (Reflex) Few A
(Negative)
Urine Albumin (Reflex) 2+ A
(Neg - Trace)
12/16/24 13:24
12/16/24 13:24
Vital Signs
Initial and Last Documented VS:
Initial Vital Signs
Temp Pulse Resp BP Pulse Ox
99.1 F 96 16 123/80 96
12/16/24 13:03 12/16/24 13:03 12/16/24 13:03 12/16/24 13:03 12/16/24 13:03
Last Documented Vital Signs
Temp Pulse Resp BP Pulse Ox
100.2 F 78 10 115/60 92
12/16/24 19:54 12/16/24 20:00 12/16/24 20:00 12/16/24 20:00 12/16/24 19:00
Production Maintenance Mechanic consulted with Physician
Production Maintenance Mechanic consulted with physician?: Yes
Name of Physician Consulted: Oriana
MDM/Problems Addressed
Differential Diagnosis Includes:
UTI, pyelonephritis, intra-abdominal infection, diverticulitis, pancreatitis, peritonitis, sepsis
Pneumonia
MDM/Problems Addressed:
74 yo female w h/o UTI w sepsis, HLD, colon resection for diverticulitis, hernia repair, takes no medication, presents with fever, nausea, and abdominal pressure. Symptoms began 2 days ago with a sensation of chills and subsequently feeling very
hot, breaking out in sweat, as well as significant abdominal pain. She took Tylenol at approximately 8 PM and Ibuprofen at 1 AM. Fever max 102 this a.m. that led to mild delirium. 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 The patient reports feeling nauseous
and having a pressure sensation in the abdomen.
The patient also described urinary symptoms noting frequent attempts to urinate last night without much output and had difficulty urinating despite a sensation of bladder fullness. She urinated well here.
Also with fever, sweats and no abdominal pain like she had 2 nights ago. States symptoms are worse at night.
Afebrile, NAD
CBC with no clinically significant abnormality
CMP with no clinically significant abnormality has had mildly elevated liver enzymes in the past
Lactic within normal limits
UA negative for infection, WBC 6-10, urine culture ordered due to her history of urosepsis and her urinary symptoms
Covid negative
RN reports pulse ox dropped to 89% when patient started to doze off, placed on 2 L nasal cannula, chest x-ray and Covid added to workup
1844:
Temp spiked again to 102.1, Tylenol given
Chest x-ray radiology report read: no acute disease of the chest.
Urine culture pending
Awaiting abd CT scan
1999:
CAT scan abdomen pelvis radiology report read: No acute pathology noted
Temp 100.7, Has been on room air past hour, pulse ox 96%
Pt hungry and eating
It is reassuring that there is no leukocytosis, no bandemia, neg w/u so far. Will check Lyme's, mono, tick borne infections. She does say she's out in the yard a lot
Pt is stable for discharge pending blood cultures and above tests.
Case discussed with Dr. Gastelum who agrees with plan
Pt is stable going home pending lab results.
*Pulse Oximetry
SaO2: 96
Oxygen Mode of Delivery: Room air
Patient hypoxic: no
*Critical Care Note
Total Time (30-74mins, 75-104mins- exclusive of procedures): Not Applicable
ED Attending Note
-
Portions of this chart may have been created with voice recognition software.� Occasional wrong word or��sound alike� substitutions may have occurred due to the inherent limitations of voice recognition software.
Discharge Plan
Departure
Patient Disposition: Home (Routine Discharge)
Date of Disposition: 12/16/24
Time of Disposition: 20:31
Patient with high blood pressure during this ER visit?: No
Condition: Fair
Discharge Problem:
Fever and chills, Fever, unknown origin
Instructions: Fever of unknown origin, Fever in adults - ED (DC)
Prescriptions:
No Action
Centrum Silver 0.4 mg-300 mcg- 250 mcg Tablet
1 tab PO DAILY
magnesium gluconate 27 mg magnesium (500 mg) Tablet
54 mg PO DAILY
B12
1,000 mcg PO DAILY
cholecalciferol (vitamin D3) [Vitamin D3] 25 mcg (1,000 unit) Tablet
25 mcg PO DAILY
cefuroxime axetil 500 mg tablet
500 mg PO BID Qty: 10 0RF
Referrals:
Elsy Ace MD [Family Provider, Family Practice] - As needed
Activity Restrictions/Additional Instructions:
As we discussed, your workup so far shows nothing worrisome, no explanation for your fevers, sweats
Lab work is pending for blood cultures, tick borne illnesses such as Lymes, Erlicha/Anaplsma, Blood parasites such as Babesiosis
The results should be back in 2-3 days. We will contact you with results.
Return here immediately for fever unrelieved with Tylenol 1000 mg 3 times a day alternated with Ibuprofen 600 mg 3 times a day every 6 hours, vomiting more than once, worse abdominal pain, headache or feeling sicker in any way
Interventions
Interventions:
*Risk Screen - Suicide Last Done: 12/16/24 16:34
*General Assessment Last Done: 12/16/24 16:34
*Neglect/Abuse Screening Last Done: 12/16/24 16:34
*ED- Fall Risk Assessment Last Done: 12/16/24 16:34
*ED COVID-19 Vaccine History Last Done: 12/16/24 16:34
*Nursing Disposition Last Done: 12/16/24 20:53
ED-Female Genitourinary Assessment Last Done: 12/16/24 16:53
Discharge Date and Time
Discharge Date/Time: 12/16/24 20:53
Print Language: NEPALI
[2024-12-16] MEDS: NSS 1000 IV (16:35)
[2024-12-16 18:02] LABS: COVID-19 Antigen Negative (Negative)
[2024-12-16] MEDS: TYLENOL 1000 MG PO (18:40)
[2024-12-19 13:53] LABS: Lyme Antibody Screen, EIA Negative (Negative)
== END 2024-12-16 20:53 | disposition home or self-care (01) ==
LOC: EMR 13:01
PROVIDERS: Emergency Medicine; Registered Nurse; EMERGENCY PHYSICIAN Emergency Medicine; FAMILY PHYSICIAN Family Medicine
DX: R50.9 Fever, unspecified (principal); R11.0 Nausea; J45.909 Unspecified asthma, uncomplicated; E78.00 Pure hypercholesterolemia, unspecified; Z87.440 Personal history of urinary (tract) infections
CPT/HCPCS: 99284; 96360; 71046; 74177; 80053; 81003; 81015; 83605; 85025; 86308; 86618; 87015; 87040; 87086; 87207; 87468; 87484; 87502; 87798; 87811; Q9967

== ENCOUNTER 2025-02-07 22:04 | Emergency (ER) | payer MEDICARE, OTHER, SELFPAY ==
[2025-02-07 22:06] VITALS: BP 152/94; BMI 29.3
[2025-02-07 22:22] LABS: Hematocrit 34.0 % (37.0-47.0); Hemoglobin 11.1 g/dL (12.0-16.0); Mean Corp Hgb Conc. 32.6 g/dL (33.0-37.0); Mean Corpuscular Volume 92.4 fL (81.0-99.0); Nucleated Red Blood Cells % 0 %; Platelet Count 158 10^3/uL (130-400); Red Cell Dist. Width 13.6 % (11.5-14.5)
[2025-02-07 22:30] VITALS: BP 123/91
[2025-02-07 22:38] LABS: ALT (SGPT) 23 U/L (0-35); AST (SGOT) 27 U/L (14-36); Albumin 4.0 g/dl (3.5-5.0); Alkaline Phosphatase 74 U/L (38-126); Blood Urea Nitrogen 30 mg/dl (7-17); Calcium 9.4 mg/dl (8.4-10.2); Carbon Dioxide 29 mmol/L (22-30); Chloride 104 mmol/L (98-107); Estimated Creatinine Clearance 52 ml/min; Glucose 112 mg/dl (70-99); Potassium 4.3 mmol/L (3.5-5.1); Sodium 137 mmol/L (135-145); Total Protein 7.1 g/dl (6.3-8.2); eGFR 52.08
[2025-02-07 22:49] LABS: Troponin I < 0.012 ng/ml
[2025-02-07 23:00] VITALS: BP 160/84
--- NOTE | 2025-02-07 23:05 | ED.GENMED ---
History of Present Illness
<Richa Harrison PA-C - Last Filed: 02/08/25 02:12>
General
Chief Complaint: Fainting Sensation
Source: patient
Exam Limitations: none
Time Seen by Provider: 02/07/25 23:03
Nursing documentation reviewed up to this point in time: agreed with
History of Present Illness
History of Present Illness:
75-year-old female with a past medical history of hyperlipidemia, emphysema, presents to the ER today with concerns of lightheadedness and near syncopal episodes. She reports that earlier in the evening, and approximately 7:30 PM, she experienced
episode of dizziness/lightheadedness and felt like she was going to blackout. She reports that this happened after she attempted to picket labor [employer] her, when she bent down and stood up. She reports that she grabbed onto the railing for support and was
unable to picket labor union the rug due to the sensation. Afterwards, she walked into the room where her was sitting and sat down. She felt better but then when she stood up again, she was too dizzy to continue. She sat back down and when she laid
down, the sensation came on again. She denies a room spinning sensation. She denies a headache, numbness or tingling, paresthesias. She denies any recent illnesses. She denies any fevers or chills. She denies any chest pain, abdominal pain,
shortness of breath, urinary symptoms. Currently, she feels well and reports that if she does not move, then she feels okay.
Past History
<Richa Harrison PA-C - Last Filed: 02/08/25 02:12>
Past History
ED Past Medical History: Asthma, Hypercholesterolemia, Other (diverticulitis) and Other (Chronic back pain)
ED Past Surgical History: Bowel resection, Orthopedic and Other (Hernia repair with mesh over 10 years ago)
Social History
Tobacco: Non-smoker
Alcohol: None
Drug: None
Personal:
Living: with family
Employment: Not employed
Review of Systems
<Richa Harrison PA-C - Last Filed: 02/08/25 02:12>
Review of Systems
All Other Systems: ROS reviewed and negative except as documented in HPI and ROS
Phy Exam
<Richa Harrison PA-C - Last Filed: 02/08/25 02:12>
Physical Exam
Physical Exam:
General: Patient is well appearing and in no acute distress; non-toxic
When patient rolls onto her right side, she feels lightheaded and she feels like everything goes black. eventually, the symptoms subside. When she sits up, she feels similar symptoms and remains conscious but she has a near syncopal episode. She
is not hypotensive or tachycardic at this time. front desk monitor remains normal Sinus rhythm.
Skin: Warm and dry, no rashes or lesions
Head: Normocephalic, atraumatic
Eyes: Sclera non-icteric. EOMs intact.
Cardiac: Regular rate and rhythm, no murmurs
Peripheral Vascular: No lower extremity swelling or edema
Pulm: Normal respiratory effort, no wheezes, rales, rhonchi
Neuro: CN II-XII intact, no focal neurologic deficits. Normal finger-nose, [id number]
Psychiatric: Appropriate mood and affect.
Course
<Richa Harrison PA-C - Last Filed: 02/08/25 02:12>
Orders/Labs/Results
Orders:
Orders
02/07/25 22:06
Electrocardiogram (*1) Urgent
Reason for Study: Hypertension, Benign
EKG- Treatment ONCE
02/07/25 22:08
Complete Blood Count/With Diff Urgent
Comprehensive Metabolic Panel Urgent
Troponin I Urgent
02/07/25 23:34
0.9% Sodium Chloride 1000 ml [Nss] 1,000 ml IV BOLUS
Abnormal Lab Results
02/07/25
22:08
WBC 4.4 L 10^3/uL
(4.8-10.8)
RBC 3.68 L 10^6/uL
(4.20-5.40)
Hgb 11.1 L g/dL
(12.0-16.0)
Hct 34.0 L %
(37.0-47.0)
MCHC 32.6 L g/dL
(33.0-37.0)
MPV 10.9 H fL
(7.4-10.4)
Monocytes % 12.3 H %
(1.7-9.3)
BUN 30 H mg/dl
(7-17)
Creatinine 1.1 H mg/dL
(0.6-1.0)
Glucose 112 H mg/dl
(70-99)
02/07/25 22:08
02/07/25 22:08
Vital Signs
Initial and Last Documented VS:
Initial Vital Signs
Temp Pulse Resp BP Pulse Ox
98.1 F 66 16 152/94 98
02/07/25 22:06 02/07/25 22:06 02/07/25 22:06 02/07/25 22:06 02/07/25 22:06
Last Documented Vital Signs
Temp Pulse Resp BP Pulse Ox
98.1 F 62 10 168/70 99
02/07/25 22:06 02/07/25 23:30 02/07/25 23:30 02/07/25 23:30 02/07/25 23:30
Prasannalt;Hola Dorado, DO - Last Filed: 02/08/25 00:33>
Orders/Labs/Results
Orders:
Orders
02/07/25 22:06
Electrocardiogram (*1) Urgent
Reason for Study: Hypertension, Benign
EKG- Treatment ONCE
02/07/25 22:08
Complete Blood Count/With Diff Urgent
Comprehensive Metabolic Panel Urgent
Troponin I Urgent
02/07/25 23:34
0.9% Sodium Chloride 1000 ml [Nss] 1,000 ml IV BOLUS
Abnormal Lab Results
02/07/25
22:08
WBC 4.4 L 10^3/uL
(4.8-10.8)
RBC 3.68 L 10^6/uL
(4.20-5.40)
Hgb 11.1 L g/dL
(12.0-16.0)
Hct 34.0 L %
(37.0-47.0)
MCHC 32.6 L g/dL
(33.0-37.0)
MPV 10.9 H fL
(7.4-10.4)
Monocytes % 12.3 H %
(1.7-9.3)
BUN 30 H mg/dl
(7-17)
Creatinine 1.1 H mg/dL
(0.6-1.0)
Glucose 112 H mg/dl
(70-99)
02/07/25 22:08
02/07/25 22:08
Vital Signs
Initial and Last Documented VS:
Initial Vital Signs
Temp Pulse Resp BP Pulse Ox
98.1 F 66 16 152/94 98
02/07/25 22:06 02/07/25 22:06 02/07/25 22:06 02/07/25 22:06 02/07/25 22:06
Last Documented Vital Signs
Temp Pulse Resp BP Pulse Ox
98.1 F 62 10 168/70 99
02/07/25 22:06 02/07/25 23:30 02/07/25 23:30 02/07/25 23:30 02/07/25 23:30
<Richa Harrison PA-C - Last Filed: 02/08/25 02:12>
MDM/Problems Addressed
Differential Diagnosis Includes:
Differentials include orthostatic hypotension/dehydration, cardiac dysrhythmia, electrolyte derangement, vasovagal pre-syncope,
MDM/Problems Addressed:
75-year-old female presents to the ER today with concerns of multiple presyncopal episodes. She reports that when she sits up or stands up, she feels as if she will pass out. She denies any room spinning sensation, any vertiginous sensation. She
denies any chest pain, palpitations, shortness of breath. She denies any redness or swelling in her lower extremities. She has no known cardiac history. At rest, she feels well but when she turns to her side or sits up, she feels like she is
going to pass out. Of note, she was doing a lot of housework today because climbing ladders and lifting rocks. She reports that she was drinking a lot of water at this time. Physical exam, she is well-appearing no acute distress. Vitals are
stable. She has no focal neurodeficit. Normal finger-nose, heel carmona. Labs reviewed, she is mildly anemic but denies any history of bleeding, denies dark tarry stools. Does have elevated BUN to creatinine ratio w will give a liter of IV fluids
and reassess.
Update, after IV fluids, patient feels well and no longer has sensation of blacking out. She is able to walk without any difficulty and position changes do not bring on her symptoms. Patient is stable for discharge, discussed strict return
precautions.
<Richa Harrison PA-C - Last Filed: 02/08/25 02:12>
*Pulse Oximetry
SaO2: 98
Oxygen Mode of Delivery: Room air
<Hola Dorado DO - Last Filed: 02/08/25 00:33>
*Pulse Oximetry
Patient hypoxic: no
*Critical Care Note
Total Time (30-74mins, 75-104mins- exclusive of procedures): Not Applicable
ED Attending Note
<Richa Harrison PA-C - Last Filed: 02/08/25 02:12>
-
Portions of this chart may have been created with voice recognition software.� Occasional wrong word or��sound alike� substitutions may have occurred due to the inherent limitations of voice recognition software.
<Hola Dorado DO - Last Filed: 02/08/25 00:33>
ED Attending Note
Patient seen and examined by attending physician: Yes
I performed the substantive portion of visit, reviewed & personally made and approve the management plan that is documented in note by myself or GINA.: Yes
ED Attending Note:
75-year-old female who presents after she developed a feeling like she was going to pass out at home. The patient states this came on relatively suddenly while she was try to picket labor union a rug and show it to somebody. Patient states that there was no
associated chest pain or shortness of breath. No palpitations. The patient denies a sense of movement or sense of room spinning. She does admit that she did get a little bit dizzy when she rotated to the right here in the emergency department.
Patient states she did lay on the couch after symptoms started and just could not get up. She was fearful she was can fall. EMS found an EKG that was grossly unremarkable. Patient states she does feel little bit better now. She denies vision
changes. She denies motor weakness. Exam: Awake and alert, no focal deficits, no nystagmus, pupils equal round reactive to light, no respiratory distress. Heart rate 74 during exam and normal sinus rhythm on secured entrance monitor. Assessment and
plan: Thus far labs grossly unremarkable and EKG and telemetry monitoring normal no focal findings to suggest CVA. Will give IV fluids and reassess orthostatics are normal. After IV fluids will ambulate
Discharge Plan
Departure
Patient Disposition: Home (Routine Discharge)
Date of Disposition: 02/08/25
Time of Disposition: 02:05
Patient with high blood pressure during this ER visit?: Yes
Condition: Good
Discharge Problem:
Near syncope, Dehydration
Instructions: Near Fainting (DC), BLOOD PRESSURE
Prescriptions:
No Action
Centrum Silver 0.4 mg-300 mcg- 250 mcg Tablet
1 tab PO DAILY
B12
1,000 mcg PO DAILY
cholecalciferol (vitamin D3) [Vitamin D3] 25 mcg (1,000 unit) Tablet
25 mcg PO DAILY
Referrals:
Elsy Ace MD [Family Provider, [facility]]
Activity Restrictions/Additional Instructions:
Please stay well-hydrated. Please follow-up with your primary care provider.
PLEASE RETURN TO THE ER SHOULD YOU DEVELOP A RETURN OR ACUTE WORSENING OR SYMPTOMS, CHEST PAIN, SHORTNESS OF BREATH, NAUSEA, VOMITING, FAINTING SPELLS, FEVERS OR CHILLS, OR ANY OTHER SIGNS OR SYMPTOMS WORRISOME TO YOU
Interventions
Interventions:
*Risk Screen - Suicide Last Done: 02/07/25 22:12
*General Assessment Last Done: 02/07/25 22:12
*Neglect/Abuse Screening Last Done: 02/07/25 22:12
*ED- Fall Risk Assessment Last Done: 02/07/25 22:12
*ED COVID-19 Vaccine History Last Done: 02/07/25 22:12
*ED Influenza Vaccine History Last Done: 02/07/25 22:12
ED- Cardiac Assessment Last Done: 02/07/25 22:11
ED- Neurological Assessment Last Done: 02/07/25 22:11
Discharge Date and Time
Print Language: CROATIAN
[2025-02-07 23:27] VITALS: BP 166/85
[2025-02-07 23:30] VITALS: BP 168/70
[2025-02-07 23:33] VITALS: BP 166/85; BP 168/70; PULSE 62; PULSE 78
[2025-02-07] MEDS: NSS 1000 IV (23:35)
[2025-02-08] VITALS: BP 126/61
[2025-02-08 00:30] VITALS: BP 145/66
[2025-02-08 01:00] VITALS: BP 131/106
[2025-02-08 01:30] VITALS: BP 149/80
[2025-02-08 02:00] VITALS: BP 157/73
== END 2025-02-08 02:38 | disposition home or self-care (01) ==
LOC: EMR 22:04
PROVIDERS: Emergency Medicine; EMERGENCY PHYSICIAN Emergency Medicine; FAMILY PHYSICIAN Family Medicine
DX: E86.0 Dehydration (principal); R55 Syncope and collapse; E78.00 Pure hypercholesterolemia, unspecified; J43.9 Emphysema, unspecified; G89.29 Other chronic pain; D64.9 Anemia, unspecified
CPT/HCPCS: 96360; 96361; 99284; 80053; 84484; 85025; 93005